=== PATIENT | female | born 1950 | race Caucasian/White ===

== ENCOUNTER 2017-05-11 12:14 | Inpatient (IN) | payer OTHER, BC ==
[2017-05-11] MEDS ORDERED: NS 1,000 ML IV ONE (12:18)
--- NOTE | 2017-05-11 12:25 | EDPHY ---
H & P Time Seen by Provider: 05/11/17 12:18 HPI/ROS: CHIEF COMPLAINT: GI bleed HISTORY OF PRESENT ILLNESS: The patient presents to emergency department from the endoscopy suite with GI bleeding hypotension. The patient reportedly developed symptoms of a GI bleed on Sunday. She had been seen at an urgent care in the [facility] over the weekend. She was mildly anemic at that time. She was discharged to home with plans to follow up with Gastroenterology today. The patient was noted to have evidence of bright red blood at her ileocecal valve. She reportedly had an otherwise unremarkable lower and upper GI according to Dr. Bonilla. The patient tells me she has continued to have intermittent hematochezia melena throughout the week. She has no prior history of GI bleeding. The patient is on a baby aspirin on a daily basis. The patient denies any significant abdominal pain. REVIEW OF SYSTEMS: A comprehensive 10 point review of systems is otherwise negative aside from elements mentioned in the history of present illness. Source: Patient Exam Limitations: No limitations - Medical/Surgical History Other PMH: Past medical history: Hypertension, diabetes - Social History Smoking Status: Never smoked - Physical Exam Exam: General Appearance: Alert, no distress Eyes: Pupils equal and round no pallor or injection ENT, Mouth: Mucous membranes moist Respiratory: There are no retractions, lungs are clear to auscultation Cardiovascular: Regular rate and rhythm Gastrointestinal: Abdomen is soft and nontender, no masses, bowel sounds normal Neurological: A&O, normal motor function, normal sensory exam, normal cranial nerves Skin: Warm and dry, no rashes Musculoskeletal: Neck is supple nontender Extremities: symmetrical, full range of motion Constitutional: Initial Vital Signs Heart Rate 75 05/11/17 12:21 Respiratory Rate 15 05/11/17 12:21 Blood Pressure 102/63 05/11/17 12:21 O2 Sat (%) 93 05/11/17 12:21 O2 Delivery Mode Nasal Cannula O2 (L/minute) 3 Allergies/Adverse Reactions: meperidine [From Demerol] Allergy (Verified 05/11/17 12:17) Home Medications: Medication Instructions Recorded Aspirin [Aspirin 81mg (*)] 05/11/17 Calcium 05/11/17 Esomeprazole Magnesium 40 mg PO 05/11/17 Fish Oil 1,000 mg Capsule 05/11/17 Lisinopril/Hydrochlorothiazide 05/11/17 [Lisinopril-Hctz 10-12.5 mg Tab] Metformin 1000 mg 05/11/17 Relpax 05/11/17 SIMPONI 05/11/17 Verapamil 05/11/17 Vitamin D3 05/11/17 Vitamin and Minerals 05/11/17 Medical Decision Making ED Course/Re-evaluation: The patient presents to the ED with reported history of transient hypotension in the setting of a GI bleed. The patient had been evaluated by Gastroenterology without an obvious source. They did notice blood traversing the terminal ileum. The patient was brought to the emergency department secondary to sporadic hypotension. She arrives and is in no acute distress. She does feel globally weak from some of the sedation she has received. The patient denies significant past medical history of GI bleeding. Patient denies any acute abdominal pain. The patient was placed on a monitor. She had an IV established. She received a L of normal saline. Patient was typed and crossed for 2 units of blood. The patient's initial hematocrit has returned reassuring. There is no evidence of a critical anemia. The patient did have blood pressures checked acute 15 minutes x1 hour without evidence of hypotension in the ED. The patient was seen in consultation by Dr. Gold from Gastroenterology. The patient will be admitted to the hospital for further evaluation of the source of her GI bleed including a tagged red blood cell scan. Consultation was made with Dr. Acevedo from the hospitalist service. The patient will be admitted to a medical-surgical bed under his care. Patient was re-evaluated at 1:40 p.m.. She is in no acute distress. Blood pressure currently 119/79 with heart rate of 80. Differential Diagnosis: Differential diagnosis considered includes upper GI bleed, lower GI bleed, critical anemia, hypovolemia, hemorrhagic shock - Data Points Laboratory Results: Laboratory Results 05/11/17 12:15 05/11/17 12:15 05/11/17 05/11/17 05/11/17 12:15 12:15 12:15 WBC RBC Hgb POC Hgb 10.9 gm/dL L gm/dL (12.6-16.3) Hct POC Hct 32 % L % (38-47) MCV MCH MCHC RDW Plt Count MPV Neut % (Auto) Lymph % (Auto) Mccreary % (Auto) Eos % (Auto) Baso % (Auto) Nucleat RBC Rel Count Absolute Neuts (auto) Absolute Lymphs (auto) Absolute Monos (auto) Absolute Eos (auto) Absolute Basos (auto) Absolute Nucleated RBC Immature Gran % Immature Gran # PT INR APTT POC Sodium 139 mEq/L mEq/L (134-144) Sodium 139 mEq/L mEq/L (134-144) POC Potassium 3.0 mEq/L L mEq/L (3.3-5.0) Potassium 3.3 mEq/L L mEq/L (3.5-5.2) POC Chloride 97 mEq/L mEq/L (97-110) Chloride 102 mEq/L mEq/L (97-110) Carbon Dioxide 25 mEq/l mEq/l (22-31) Anion Gap 12 mEq/L mEq/L (8-16) POC BUN 23 mg/dL mg/dL (7-23) BUN 23 mg/dL mg/dL (7-23) Creatinine 1.2 mg/dL H mg/dL (0.6-1.0) POC Creatinine 1.2 mg/dL H mg/dL (0.6-1.0) Estimated GFR 45 Glucose 135 mg/dL H mg/dL (70-100) POC Glucose 143 mg/dL H mg/dL (70-100) Calcium 8.5 mg/dL mg/dL (8.5-10.4) Total Bilirubin 0.8 mg/dL mg/dL (0.1-1.4) Conjugated Bilirubin 0.2 mg/dL mg/dL (0.0-0.5) Unconjugated Bilirubin 0.6 mg/dL mg/dL (0.0-1.1) AST 117 IU/L H IU/L (14-46) ALT 85 IU/L H IU/L (9-52) Alkaline Phosphatase 49 IU/L IU/L (38-126) Total Protein 6.2 g/dL L g/dL (6.3-8.2) Albumin 3.4 g/dL L g/dL (3.5-5.0) Lipase 161.0 IU/L IU/L (23-300) Patient ABO/Rh O POSITIVE Antibody Screen NEGATIVE Crossmatch IS Only See Detail 05/11/17 05/11/17 12:15 12:15 WBC 4.70 10^3/uL 10^3/uL (3.80-9.50) RBC 3.17 10^6/uL L 10^6/uL (4.18-5.33) Hgb 10.1 g/dL L g/dL (12.6-16.3) POC Hgb Hct 29.2 % L % (38.0-47.0) POC Hct MCV 92.1 fL fL (81.5-99.8) MCH 31.9 pg pg (27.9-34.1) MCHC 34.6 g/dL g/dL (32.4-36.7) RDW 14.0 % % (11.5-15.2) Plt Count 130 10^3/uL L 10^3/uL (150-400) MPV 9.5 fL fL (8.7-11.7) Neut % (Auto) 50.5 % % (39.3-74.2) Lymph % (Auto) 33.6 % % (15.0-45.0) Mccreary % (Auto) 14.7 % H % (4.5-13.0) Eos % (Auto) 0.6 % % (0.6-7.6) Baso % (Auto) 0.2 % L % (0.3-1.7) Nucleat RBC Rel Count 0.0 % % (0.0-0.2) Absolute Neuts (auto) 2.37 10^3/uL 10^3/uL (1.70-6.50) Absolute Lymphs (auto) 1.58 10^3/uL 10^3/uL (1.00-3.00) Absolute Monos (auto) 0.69 10^3/uL 10^3/uL (0.30-0.80) Absolute Eos (auto) 0.03 10^3/uL 10^3/uL (0.03-0.40) Absolute Basos (auto) 0.01 10^3/uL L 10^3/uL (0.02-0.10) Absolute Nucleated RBC 0.00 10^3/uL 10^3/uL (0-0.01) Immature Gran % 0.4 % % (0.0-1.1) Immature Gran # 0.02 10^3/uL 10^3/uL (0.00-0.10) PT 14.1 SEC SEC (12.0-15.0) INR 1.10 (0.83-1.16) APTT 27.5 SEC SEC (23.0-38.0) POC Sodium Sodium POC Potassium Potassium POC Chloride Chloride Carbon Dioxide Anion Gap POC BUN BUN Creatinine POC Creatinine Estimated GFR Glucose POC Glucose Calcium Total Bilirubin Conjugated Bilirubin Unconjugated Bilirubin AST ALT Alkaline Phosphatase Total Protein Albumin Lipase Patient ABO/Rh Antibody Screen Crossmatch IS Only Medications Given: Discontinued Medications Sodium Chloride (Ns) 1,000 mls @ 0 mls/hr IV EDNOW ONE; Wide Open PRN Reason: Protocol Stop: 05/11/17 12:19 Last Admin: 05/11/17 12:23 Dose: 1,000 mls Point of Care Test Results: 05/11/17 12:15 POC Sodium 139 POC Potassium 3.0 L POC Chloride 97 POC BUN 23 POC Creatinine 1.2 H POC Glucose 143 H Departure - Departure Disposition: [facility] Inpatient Acute Clinical Impression: GI bleed, Anemia Condition: Fair Referrals: LAWRENCE FAY [Primary Care Provider] - As per Instructions
[2017-05-11 12:30] LABS: % IMMATURE GRANULYOCYTES 0.4 % (0.0-1.1); ABSOLUTE IMMATURE GRANULOCYTES 0.02 10^3/uL (0.00-0.10); ADD DIFF? NO; ADD MORPH? NO; ADD SCAN? NO; ATYPICAL LYMPHOCYTE FLAG 80 (0-99); FRAGMENT RBC FLAG 0 (0-99); HEMATOCRIT 29.2 % (38.0-47.0); HEMOGLOBIN 10.1 g/dL (12.6-16.3); LEFT SHIFT FLG 0 (0-99); LIPEMIA HEMOLYSIS FLAG 90 (0-99); MEAN CELL HEMOGLOBIN 31.9 pg (27.9-34.1); MEAN CELL HEMOGLOBIN CONCENTR. 34.6 g/dL (32.4-36.7); MEAN CELL VOLUME 92.1 fL (81.5-99.8); MEAN PLATELET VOLUME 9.5 fL (8.7-11.7); PLATELET CLUMPS FLAG 0 (0-99); PLATELET COUNT 130 10^3/uL (150-400); RED BLOOD CELL COUNT 3.17 10^6/uL (4.18-5.33)
[2017-05-11 12:40] LABS: INR 1.1 (0.83-1.16); PROTIME(PATIENT) 14.1 SEC (12.0-15.0)
[2017-05-11 12:41] LABS: APTT 27.5 SEC (23.0-38.0)
[2017-05-11 12:53] LABS: ALANINE AMINOTRANSFERASE 85 IU/L (9-52); ALBUMIN 3.4 g/dL (3.5-5.0); ALKALINE PHOSPHATASE 49 IU/L (38-126); ANION GAP 12 mEq/L (8-16); ASPARTATE AMINOTRANSFERASE 117 IU/L (14-46); BILIRUBIN,TOTAL 0.8 mg/dL (0.1-1.4); BILIRUBIN-CONJUGATED 0.2 mg/dL (0.0-0.5); BILIRUBIN-UNCONJUGATED 0.6 mg/dL (0.0-1.1); CALCIUM 8.5 mg/dL (8.5-10.4); CARBON DIOXIDE 25 mEq/l (22-31); CHLORIDE 102 mEq/L (97-110); CREATININE 1.2 mg/dL (0.6-1.0); GLOMERULAR FILTRATION RATE 45; GLUCOSE 135 mg/dL (70-100); POTASSIUM 3.3 mEq/L (3.5-5.2); SODIUM 139 mEq/L (134-144); TOTAL PROTEIN 6.2 g/dL (6.3-8.2)
--- NOTE | 2017-05-11 14:18 | PDGENHP ---
History and Physical History and Physical: HISTORY AND PHYSICAL CC: GI bleeding HISTORY: This woman with no history of GI bleeding or any other bleeding disorder started noticing melenic stools and occasional bright red blood 6 days ago. She was up in [facility] and went to the ER there. They apparently checked blood counts and a CT scan of the abdomen there and thought things looked well on those tests. She was instructed to make follow-up arrangements engagement specialist. She stayed up in [facility] and return here yesterday ended up seeing her usual engagement specialist Dr. Gonzáles. she underwent preparation and today had upper endoscopy and colonoscopy. Her upper endoscopy apparently was unremarkable. On lower endoscopy there was red blood coming from above the ileocecal valve but the source could not be identified. It is reported to me that she did have some lower blood pressure during the procedure and during sedation but her blood pressures have been good since then. The patient denies any abdominal pain, nausea, change in bowel function, or change in appetite. She has not lost any weight, had fevers, headaches or pains in joints or muscles. She does not take any anticoagulant medications but does take a baby aspirin daily. ROS: A comprehensive 10 system review revealed no other significant findings PAST MEDICAL HISTORY: Hypertension Type 2 diabetes mellitus Vaginal hysterectomy FAMILY MEDICAL HISTORY: No GI bleeding or tumors SOCIAL HISTORY: lives with her , no tobacco use, no significant alcohol issues MEDICATIONS: The patients list has been reconciled by our clinical pharmacist in the EMR. I have reviewed the list and ordered appropriate medicines. allergic to Demerol which caused hives No other medicine allergies PHYSICAL EXAMINATION: Vital Signs:Here she is stable without fever; again she did have some low blood pressure during her colonoscopy apparently Cfa: sinus rhythm Examination: General: alert, oriented, good mentation, relaxed Skin: warm, dry, good color, no rash HEENT: normal Neck: no mass or jvd Resps: relaxed Lungs: clear breath sounds Heart: regular, no murmur Abdomen: soft, nondistended, nontender, +BS, no mass Upper Extremities: normal Lower Extremities: no edema, warm No Bleeding or bruising Neurologic: normal speech/language, 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 A nuclear tagged red cell scan has been ordered to try and isolate the location of her bleeding. So far she has been bleeding for 6 days and remains hemodynamically stable though with some mild normocytic anemia. At this point admission to the hospital to monitor hemodynamics and blood counts is indicated as well as to facilitate further diagnostic evaluation. It is most likely that this bleeding will stop on its own but it is possible that she may need some type of radiologic or surgical procedure to stop the bleeding. PLANS: -IV hydration -NPO for the moment -Follow blood counts and hemodynamics closely -Stop her aspirin at this point -Blood sample has been sent to the blood bank for screening -Will review her tagged red cell scan when that is done and discussed with Dr. Gold of GI - further plans as clinically indicated- for her beeding -Follow sugars and treat as indicated here -DVT prophylaxis will be without medications to her bleeding can be observation status at this point but may well need to be changed to inpatient status I have reviewed the patient's case in detail with Dr. Pawel Aguilar
--- NOTE | 2017-05-11 14:34 | GCON ---
[f rep st] CONSULTATION DATE OF CONSULTATION: 05/11/2017 REFERRING PHYSICIAN: Lobo Dawkins DO REASON FOR CONSULTATION: Melena. Dear Dr. Dawkins: Thank you very kindly for asking me to evaluate the patient in consultation for a chief complaint of melena. She is a 67-year-old female with underlying nonalcoholic steatohepatitis with clinically d iagnosed cirrhosis based on an upper endoscopy in September with portal hypertension and varices who has been having melena since last Sunday. She was vacationing with her up in [place] and n oted the development of black tarry stools on Sunday. She had about 2 bowel movements that were d ark and sticky and malodorous. On Sunday she had another dark tarry bowel movement. She felt somew hat weak and tired but denied any vomiting of blood or abdominal pain. On Sunday there was no bleed ing but on Sunday it recurred. She contacted our office and was set up for an upper endoscopy and colonoscopy which was performed today. The findings on the endoscopy showed features of portal hype rtension with grade 1 esophageal varices and no stigmata of bleeding, but the colonoscopy revealed r ed blood and clot in the cecum that seemed to be emanating from the terminal ilium. There was no co lonic source of bleeding identified. She was slightly hypotensive in recovery and was sent to the e mergency room for further evaluation and management. Of note, she went to an urgent care over the [facility] in [facility] where her hematocrit was found to be 37. This was slightly down from her ba seline. She has well-compensated cirrhosis with a MELD of 7. In the emergency room today, her damian tocrit is 29.2, with an INR of 1.1. Her BUN is 23 with a creatinine of 1.2. Her blood pressure is 117/60. She is mentating well. I am asked to assist with further evaluation and management. PAST MEDICAL HISTORY: 1. Nonalcoholic steatohepatitis with resultant cirrhosis that has been diagnosed clinically. She h ad a remote liver biopsy multiple years ago that she said just showed fatty liver with early fibrosi s but was told she had cirrhosis in September after an endoscopy showed varices. 2. Hypertension. 3. Type 2 diabetes. 4. Rheumatoid arthritis, on Simponi. 5. She has had a history of vocal cord dysfunction and subglottic stenosis that has been treated wi th Botox infection. PAST SURGICAL HISTORY: Abdominal hysterectomy, liver biopsy, Botox injection to the vocal cords las t performed a month ago. MEDICATIONS: Include Simponi, aspirin. ALLERGIES: Demerol. FAMILY HISTORY: Negative for cirrhosis or bleeding disorders. SOCIAL HISTORY: No alcohol, no tobacco. She is . She has 1 son who lives in [place]. She lives in [place]. 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 REVIEW OF SYSTEMS: CONSTITUTIONAL: Has been significant for weakness and malaise which began over the weekend. HEENT: Denies headache, epistaxis, sore throat, rhinorrhea, odynophagia or difficulty swallowing. PULMONARY: No shortness of breath but she does report a cough which is typical after her Botox injection to the vocal cords. She also reports some hoarseness which is also common after her Botox injection. CARDIOVASCULAR: No palpitations, no syncope, no chest pain. GI: Denies hea rtburn, dysphagia, nausea, vomiting, or hematemesis. She reported melena which is been as described in history of present illness which began Sunday. She also had some red blood that was more fres h in color and of moderate volume that occurred with the bowel cleanse for colonoscopy today. She d enies abdominal pain. RHEUMATOLOGIC: Diffuse joint pain in the ankles, knees, hands, wrists, shoul ders and low back related to her arthritis which has been stable. DERMATOLOGIC: Denies rash, bruis ing, jaundice or pruritus. HEMATOLOGIC: No bruising or epistaxis. PSYCHIATRIC: No depression, an xiety, or insomnia. GENITOURINARY: Denies hematuria. GYNECOLOGIC: Denies vaginal bleeding. PHYSICAL EXAM: VITAL SIGNS: Blood pressure 102/63, with a pulse of 75, respirations are 15, oxygen ation 93% on 3 L nasal cannula. GENERAL: Pale but comfortable-appearing female in no acute distres s. Alert and able to provide her own history. Her voice is hoarse and she does have intermittent d ry cough. HEENT: Normocephalic, atraumatic. Nares are nonbloody. Oropharynx is clear without blo od. NECK: Supple. No JVD or carotid bruit. No lymphadenopathy. No thyromegaly. PULMONARY: Kamlesh ar to auscultation bilaterally with good respiratory exchange. There is some mild rhonchi, and with deep breathing, it precipitates coughing. CARDIOVASCULAR: Regular rate and rhythm. Occasional ec topy. No murmur. GI: Abdomen is nondistended with normal bowel sounds. Soft. No organomegaly. No splenomegaly particularly. No ascites. No hernia. No tenderness, rebound or guarding. SKIN: Pale and slightly cool to touch. Capillary refill is normal. Pulses in the dorsalis pedis, femoral and radial are 2+ and symmetric. DERMATOLOGIC: No jaundice, rash or lesion. NEUROLOGIC: Alert t o person, place, and time. Cranial nerves are normal. Motor nonfocal and symmetric. DATABASE: Includes white blood count is 4.7, hematocrit is 29.2, platelets are 130. INR is 1.1 wit h a PT of 14.1, PTT is 27.5. Sodium 139, potassium 3.3, chloride 97, bicarbonate 25, BUN 23, creati nine 1.2. Glucose 135, AST is 117, ALT is 85, total bilirubin 0.8, alkaline phosphatase 49, total pr otein 6.2, albumin 3.4, lipase 161. Upper endoscopy performed today. I do not have that formal report, but in speaking with Dr. George Borrego, this revealed small 5 mm grade 1 esophageal varices without stigmata of bleeding and martin l hypertensive gastropathy that was mild to moderate. There was no blood anywhere in the upper GI s ystem and no source for bleeding identified. Colonoscopy complete to the cecum. There was blood scattered throughout the colon with more predomi nant clotting and red blood coming out of the terminal ilium that was seen during colonoscopy but no identifiable mucosal lesion to account for the bleeding was found. The suspicion on exam was for a possible small bowel bleeding source. IMPRESSION: 1. Melena. 2. Anemia secondary to acute blood loss. 3. Hypotension. 4. Cirrhosis related to fatty liver disease. MELD score is 8. RECOMMENDATIONS: 1. N,p.o. 2. Monitor hematocrit q.4 hours. 3. Tagged red blood cell study. 4. Based on the findings of the tagged red cell scan, further interrogative maneuvers can be perfor med. If the red blood cell scan is positive for bleeding in the small bowel, then angiography will be requested. 5. If the tagged cell study suggests a bleeding source that is within the reach of upper endoscopy or colonoscopy, then these will be repeated to help identify the bleeding location. 6. Her coagulation parameters are normal and I do not believe vitamin K or fresh frozen plasma woul d be of any value in controlling bleeding. 7. Withhold all aspirin. 8. Withhold Simponi for now. 9. Hospital admission for Intermediate Care Unit bed (minimally step-down) or telemetry for ongoing care. 10. Further recommendations to follow. /[id number]/MODL
[2017-05-11] MEDS ORDERED: ZOLPIDEM TARTRATE 5 MG TAB PO PRN (16:24)
[2017-05-11] MEDS ORDERED: ONDANSETRON 4 MG/2 ML VIAL IVP PRN (16:24)
[2017-05-11] MEDS ORDERED: ONDANSETRON DISINTEGRATING 4 MG TAB PO PRN (16:24)
[2017-05-11] MEDS ORDERED: ELETRIPTAN HBR 40 MG PO PRN (16:28)
[2017-05-11] MEDS: NS 1,000 ML IV SCH (17:48)
[2017-05-11] MEDS: metFORMIN HCL 500 MG TAB PO SCH (17:58)
[2017-05-11 18:58] LABS: HEMATOCRIT 27.4 % (38.0-47.0); HEMOGLOBIN 9.5 g/dL (12.6-16.3)
[2017-05-11] MEDS: PANTOPRAZOLE SODIUM 40 MG in NS 100 ML IV SCH (21:22)
[2017-05-12 01:15] LABS: HEMATOCRIT 28.2 % (38.0-47.0)
[2017-05-12 05:20] LABS: HEMATOCRIT 28.9 % (38.0-47.0)
[2017-05-12 05:42] LABS: ANION GAP 14 mEq/L (8-16); CALCIUM 8.4 mg/dL (8.5-10.4); CARBON DIOXIDE 23 mEq/l (22-31); CHLORIDE 106 mEq/L (97-110); CREATININE 0.8 mg/dL (0.6-1.0); GLOMERULAR FILTRATION RATE > 60; GLUCOSE 109 mg/dL (70-100); POTASSIUM 3.2 mEq/L (3.5-5.2); SODIUM 143 mEq/L (134-144)
[2017-05-12] MEDS: metFORMIN HCL 500 MG TAB PO SCH ×2 (07:57→17:51)
[2017-05-12] MEDS: ACETAMINOPHEN 325 MG TAB PO PRN (07:59)
[2017-05-12] MEDS: PANTOPRAZOLE SODIUM 40 MG in NS 100 ML IV SCH ×2 (08:01→21:28)
[2017-05-12] MEDS: NS 1,000 ML IV SCH ×2 (08:03→18:13)
[2017-05-12] MEDS ORDERED: ACETAMN/DIPHENHYDRAMINE 500/25MG TAB PO PRN (11:34)
[2017-05-12] MEDS ORDERED: VERAPAMIL HCL 240 MG PO SCH (11:45)
[2017-05-12] MEDS ORDERED: VERAPAMIL ER 240 MG TAB PO SCH (11:45)
[2017-05-12] MEDS: VERAPAMIL ER 240 MG TAB PO SCH ×2 (12:03→21:37)
--- NOTE | 2017-05-12 13:17 | SOAPPROG ---
SOAP Progress Note Assessment/Plan: Assessment: Plan: 05/12/17 13:12 A/P 1. GI bleed- s/p EGD with no blood seen. On colonoscopic evaluation had blood in TI. Small bowel bleed versus other? Tagged rbc scan unrevealing. Clinically does not appear to be actively bleeding and hemoglobin stable. If no signs of GI bleed, would recommend capsule endoscopy as outpatient. If any signs of bleed , consider enteroscopy/ possible enterography. Will start diet. Monitor H/H and transfuse as needed. 2. Cirrhosis- grade I nonbleeding esophageal varices. Subjective: cc: Follow up GI bleed No complaints of abdominal pain. Minimal blood noted on BM. Objective: Vital Signs Temp Pulse Resp BP Pulse Ox 36.7 C 69 18 147/83 H 91 L 05/12/17 11:22 05/12/17 11:22 05/12/17 11:22 05/12/17 12:03 05/12/17 11:22 Laboratory Results 05/12/17 05:00 05/12/17 05:00 05/11/17 05/12/17 05/13/17 05:59 05:59 05:59 Intake Total 989 Output Total 250 Balance 739 PT 14.1 SEC (12.0-15.0) 05/11/17 12:15 INR 1.10 (0.83-1.16) 05/11/17 12:15 Physical Exam - Physical Exam General Appearance: alert, no apparent distress EENT: No scleral icterus (R), No scleral icterus (L) Respiratory: lungs clear, normal breath sounds, No crackles, No rales, No rhonchi Cardiac/Chest: regular rate, rhythm, No bradycardia, No tachycardia Abdomen: normal bowel sounds, non-tender, soft, No distended, No guarding, No rebound, No ascites Skin: normal color, warm/dry Neuro/Psych: normal mood/affect, oriented x 3, No abnormal disk and tape machine tender II-XII ICD10 Worksheet Patient Problems: Problems Problem Status Onset Anemia Acute GI bleed Acute
[2017-05-12 13:27] LABS: HEMATOCRIT 27.7 % (38.0-47.0); HEMOGLOBIN 9.4 g/dL (12.6-16.3)
--- NOTE | 2017-05-12 15:53 | HOSPPROG ---
Hospitalist Progress Note Assessment/Plan: * upper GI bleed * probably small-bowel * seems to have stabilized * will discontinue aspirin * monitor 1 more day * capsule endoscopy outpatient * early cirrhosis * hypertension * will continue most meds but hold diuretic * type 2 diabetes Subjective: no new melena Objective: Vital Signs Temp Pulse Resp BP Pulse Ox 36.7 C 69 18 147/83 H 91 L 05/12/17 11:22 05/12/17 11:22 05/12/17 11:22 05/12/17 12:03 05/12/17 11:22 Laboratory Results 05/12/17 12:15 05/12/17 05:00 05/11/17 05/12/17 05/13/17 05:59 05:59 05:59 Intake Total 989 Output Total 250 Balance 739 PT 14.1 SEC (12.0-15.0) 05/11/17 12:15 INR 1.10 (0.83-1.16) 05/11/17 12:15 - Physical Exam Constitutional: no apparent distress, appears nourished, not in pain Eyes: anicteric sclera, EOMI Ears, Nose, Mouth, Throat: moist mucous membranes, hearing normal Cardiovascular: regular rate and rhythym, no murmur, rub, or gallop Respiratory: no respiratory distress, no rales or rhonchi, clear to auscultation Gastrointestinal: normoactive bowel sounds, soft, non-tender abdomen, no palpable masses Skin: warm Neurologic: AAOx3 Psychiatric: interacting appropriately, not anxious, not encephalopathic, thought process linear ICD10 Worksheet Patient Problems: Problems Problem Status Onset Anemia Acute GI bleed Acute
[2017-05-12] MEDS: LISINOPRIL 40 MG TAB PO SCH (16:10)
[2017-05-12] MEDS: guaiFENesin 200 MG/10 ML UDL PO PRN ×2 (18:13→21:29)
[2017-05-12 20:39] LABS: HEMATOCRIT 26.6 % (38.0-47.0); HEMOGLOBIN 9.2 g/dL (12.6-16.3)
[2017-05-12] MEDS ORDERED: TEMAZEPAM 15 MG CAP PO PRN (20:48)
[2017-05-13 00:59] LABS: HEMATOCRIT 26.9 % (38.0-47.0); HEMOGLOBIN 9.2 g/dL (12.6-16.3)
[2017-05-13] MEDS: NS 1,000 ML IV SCH ×2 (04:18→19:59)
[2017-05-13 05:29] LABS: ADD MORPH? NO; ADD SCAN? YES; FRAGMENT RBC FLAG 0 (0-99); HEMATOCRIT 27.9 % (38.0-47.0); HEMOGLOBIN 9.4 g/dL (12.6-16.3); LEFT SHIFT FLG 0 (0-99); LIPEMIA HEMOLYSIS FLAG 80 (0-99); MEAN CELL HEMOGLOBIN 31.8 pg (27.9-34.1); MEAN CELL HEMOGLOBIN CONCENTR. 33.7 g/dL (32.4-36.7); MEAN CELL VOLUME 94.3 fL (81.5-99.8); MEAN PLATELET VOLUME 9.2 fL (8.7-11.7); PLATELET CLUMPS FLAG 30 (0-99); PLATELET COUNT 125 10^3/uL (150-400); RED BLOOD CELL COUNT 2.96 10^6/uL (4.18-5.33); RED CELL DISTRIBUTION WIDTH 14.3 % (11.5-15.2)
[2017-05-13 05:30] LABS: ATYPICAL LYMPHOCYTE FLAG 120 (0-99)
[2017-05-13 05:33] LABS: POTASSIUM 3.4 mEq/L (3.5-5.2)
[2017-05-13 05:34] LABS: ANION GAP 11 mEq/L (8-16); CALCIUM 8.2 mg/dL (8.5-10.4); CARBON DIOXIDE 24 mEq/l (22-31); CHLORIDE 110 mEq/L (97-110); CREATININE 0.8 mg/dL (0.6-1.0); GLOMERULAR FILTRATION RATE > 60; GLUCOSE 96 mg/dL (70-100); SODIUM 145 mEq/L (134-144)
[2017-05-13 05:49] LABS: ADD DIFF? YES; SCAN POSITIVE
[2017-05-13 05:52] LABS: MACROCYTES 2+; PLATELET ESTIMATE DECREASED (ADEQ); POLYCHROMASIA 1+
[2017-05-13] MEDS: LISINOPRIL 40 MG TAB PO SCH (10:08)
[2017-05-13] MEDS: VERAPAMIL ER 240 MG TAB PO SCH ×2 (10:09→20:07)
[2017-05-13] MEDS: PANTOPRAZOLE SODIUM 40 MG in NS 100 ML IV SCH ×2 (10:09→20:20)
[2017-05-13] MEDS: metFORMIN HCL 500 MG TAB PO SCH ×2 (10:11→18:56)
--- NOTE | 2017-05-13 13:20 | SOAPPROG ---
SOAP Progress Note Assessment/Plan: Assessment: Plan: 05/12/17 13:12 A/P 1. GI bleed- s/p EGD with no blood seen. On colonoscopic evaluation had blood in TI. Small bowel bleed versus other? Tagged rbc scan unrevealing. Clinically does not appear to be actively bleeding and hemoglobin stable. If no signs of GI bleed, would recommend capsule endoscopy as outpatient. If any signs of bleed , consider enteroscopy/ possible enterography. Will start diet. Monitor H/H and transfuse as needed. 2. Cirrhosis- grade I nonbleeding esophageal varices. 05/13/17 13:17 A/P 1. GI bleed- s/p EGD, colonoscopy, and tagged rbc scan which is unrevealing. SB bleed? Blood BM reported by her last night. However, hemoglobin stable and no recent BMs. According to sign out from nurse last night, may have not been that bloody? Will order CT enterography today. Monitor H/H. If unrevealing, will consider enteroscopy tomorrow? R/b/a discussed with her. Subjective: cc: F/u on blood in stools No pain. Had bloody BM last night. Objective: Vital Signs Temp Pulse Resp BP Pulse Ox 36.6 C 59 L 18 111/68 92 05/13/17 07:38 05/13/17 10:07 05/13/17 07:38 05/13/17 10:09 05/13/17 07:38 Laboratory Results 05/13/17 04:50 05/13/17 04:50 05/12/17 05/13/17 05/14/17 05:59 05:59 05:59 Intake Total 989 3116 Output Total 250 451 450 Balance 739 2665 -450 PT 14.1 SEC (12.0-15.0) 05/11/17 12:15 INR 1.10 (0.83-1.16) 05/11/17 12:15 Physical Exam - Physical Exam General Appearance: alert, no apparent distress EENT: No scleral icterus (R), No scleral icterus (L) Respiratory: lungs clear, normal breath sounds, No crackles, No rales, No rhonchi Cardiac/Chest: regular rate, rhythm, No diastolic murmur, No systolic murmur Abdomen: non-tender, soft, No distended, No guarding, No rebound Skin: normal color Neuro/Psych: normal mood/affect, oriented x 3, No abnormal procedures analyst II-XII ICD10 Worksheet Patient Problems: Problems Problem Status Onset Anemia Acute GI bleed Acute
[2017-05-13] MEDS ORDERED: IOPAMIDOL (ISOVUE-300) 100 ML BTL ONE (14:47)
[2017-05-13] MEDS: guaiFENesin 200 MG/10 ML UDL PO PRN (16:19)
[2017-05-13 16:41] LABS: HEMATOCRIT 25.4 % (38.0-47.0); HEMOGLOBIN 8.6 g/dL (12.6-16.3)
[2017-05-13] MEDS ORDERED: ALBUTEROL 3 ML DEYVIAL IH PRN (16:47)
[2017-05-13] MEDS: guaiFENesin 600 MG TAB.ER PO SCH ×2 (18:48→20:11)
--- NOTE | 2017-05-13 19:12 | HOSPPROG ---
Hospitalist Progress Note Assessment/Plan: * upper GI bleed * probably small-bowel * seems to have stabilized but did have bloody bm * will discontinue aspirin * cont to watch hg * possible repeat colonoscopy tomorrow if bleeding * early cirrhosis * hypertension * will continue most meds but hold diuretic * type 2 diabetes Subjective: some bloody stool overnight but none today Objective: Vital Signs Temp Pulse Resp BP Pulse Ox 36.8 C 66 17 106/60 90 L 05/13/17 16:00 05/13/17 16:00 05/13/17 16:00 05/13/17 16:00 05/13/17 16:00 Laboratory Results 05/13/17 16:15 05/13/17 04:50 05/12/17 05/13/17 05/14/17 05:59 05:59 05:59 Intake Total 989 3116 Output Total 250 451 450 Balance 739 2665 -450 PT 14.1 SEC (12.0-15.0) 05/11/17 12:15 INR 1.10 (0.83-1.16) 05/11/17 12:[address] regalado - Physical Exam Constitutional: no apparent distress, appears nourished, not in pain Eyes: anicteric sclera, EOMI Ears, Nose, Mouth, Throat: moist mucous membranes, hearing normal, ears appear normal Cardiovascular: regular rate and rhythym, no murmur, rub, or gallop Respiratory: no respiratory distress, no rales or rhonchi, clear to auscultation Gastrointestinal: normoactive bowel sounds, soft, non-tender abdomen, no palpable masses Skin: warm Neurologic: AAOx3 Psychiatric: interacting appropriately, not anxious, not encephalopathic, thought process linear ICD10 Worksheet Patient Problems: Problems Problem Status Onset Anemia Acute GI bleed Acute
[2017-05-13] MEDS: ALBUTEROL 3 ML DEYVIAL IH SCH ×2 (19:17→20:44)
[2017-05-14] MEDS: ACETAMINOPHEN 325 MG TAB PO PRN (00:04)
[2017-05-14 05:08] LABS: ANION GAP 9 mEq/L (8-16); CALCIUM 7.8 mg/dL (8.5-10.4); CARBON DIOXIDE 21 mEq/l (22-31); CHLORIDE 114 mEq/L (97-110); CREATININE 0.7 mg/dL (0.6-1.0); GLOMERULAR FILTRATION RATE > 60; GLUCOSE 80 mg/dL (70-100); POTASSIUM 3.5 mEq/L (3.5-5.2); SODIUM 144 mEq/L (134-144)
[2017-05-14 06:30] LABS: % IMMATURE GRANULYOCYTES 0.6 % (0.0-1.1); ABSOLUTE IMMATURE GRANULOCYTES 0.02 10^3/uL (0.00-0.10); ADD DIFF? NO; ADD MORPH? NO; ADD SCAN? YES; FRAGMENT RBC FLAG 0 (0-99); HEMATOCRIT 23.9 % (38.0-47.0); HEMOGLOBIN 8.1 g/dL (12.6-16.3); LEFT SHIFT FLG 0 (0-99); LIPEMIA HEMOLYSIS FLAG 90 (0-99); MEAN CELL HEMOGLOBIN 31.6 pg (27.9-34.1); MEAN CELL HEMOGLOBIN CONCENTR. 33.9 g/dL (32.4-36.7); MEAN CELL VOLUME 93.4 fL (81.5-99.8); MEAN PLATELET VOLUME 8.8 fL (8.7-11.7); PLATELET CLUMPS FLAG 0 (0-99); PLATELET COUNT 101 10^3/uL (150-400); RED BLOOD CELL COUNT 2.56 10^6/uL (4.18-5.33); RED CELL DISTRIBUTION WIDTH 14.4 % (11.5-15.2)
[2017-05-14 06:33] LABS: ATYPICAL LYMPHOCYTE FLAG 150 (0-99)
[2017-05-14] MEDS: NS 1,000 ML IV SCH (06:34)
[2017-05-14 07:12] LABS: SCAN NEGATIVE
--- NOTE | 2017-05-14 07:34 | SOAPPROG ---
JOSE Progress Note Assessment/Plan: Assessment: Plan: 05/12/17 13:12 A/P 1. GI bleed- s/p EGD with no blood seen. On colonoscopic evaluation had blood in TI. Small bowel bleed versus other? Tagged rbc scan unrevealing. Clinically does not appear to be actively bleeding and hemoglobin stable. If no signs of GI bleed, would recommend capsule endoscopy as outpatient. If any signs of bleed , consider enteroscopy/ possible enterography. Will start diet. Monitor H/H and transfuse as needed. 2. Cirrhosis- grade I nonbleeding esophageal varices. 05/13/17 13:17 A/P 1. GI bleed- s/p EGD, colonoscopy, and tagged rbc scan which is unrevealing. SB bleed? Blood BM reported by her last night. However, hemoglobin stable and no recent BMs. According to sign out from nurse last night, may have not been that bloody? Will order CT enterography today. Monitor H/H. If unrevealing, will consider enteroscopy tomorrow? R/b/a discussed with her. 05/14/17 07:33 GI note CTE unremarkable. Discussed with patient. Will proceed with enteroscopy later today. Keep NPO Objective: Vital Signs Temp Pulse Resp BP Pulse Ox 36.6 C 63 16 113/66 90 L 05/14/17 04:34 05/14/17 04:34 05/14/17 04:34 05/14/17 04:34 05/14/17 04:34 Laboratory Results 05/14/17 06:15 05/14/17 04:23 05/13/17 05/14/17 05/15/17 05:59 05:59 05:59 Intake Total 3116 550 2026 Output Total 451 2200 Balance 2665 -1650 202 PT 14.1 SEC (12.0-15.0) 05/11/17 12:15 INR 1.10 (0.83-1.16) 05/11/17 12:15 ICD10 Worksheet Patient Problems: Problems Problem Status Onset GI bleed Acute Anemia Acute
[2017-05-14] MEDS: ALBUTEROL 3 ML DEYVIAL IH SCH ×2 (08:44→22:10)
[2017-05-14] MEDS: PANTOPRAZOLE SODIUM 40 MG in NS 100 ML IV SCH ×2 (09:16→20:19)
[2017-05-14] MEDS: LISINOPRIL 40 MG TAB PO SCH (09:16)
[2017-05-14] MEDS: VERAPAMIL ER 240 MG TAB PO SCH ×2 (09:16→20:19)
[2017-05-14] MEDS: guaiFENesin 600 MG TAB.ER PO SCH ×2 (09:16→20:19)
--- NOTE | 2017-05-14 16:18 | HOSPPROG ---
Hospitalist Progress Note Assessment/Plan: * upper GI bleed * probably small-bowel * Hemoglobin is drifting down * will discontinue aspirin * Enteroscopy today * early cirrhosis * hypertension * will continue most meds but hold diuretic * bronchitis * Probably viral * Getting better * Hold off on antibiotics * rheumatoid arthritis * Holding biological medication for a few days * type 2 diabetes Subjective: 1 bowel movement with blood last night. Hemoglobin is drifting down a little bit. Cough seems to be better Objective: Vital Signs Temp Pulse Resp BP Pulse Ox 37 C 67 18 134/78 H 91 L 05/14/17 15:11 05/14/17 15:11 05/14/17 15:11 05/14/17 15:11 05/14/17 15:11 Laboratory Results 05/14/17 06:15 05/14/17 04:23 05/13/17 05/14/17 05/15/17 05:59 05:59 05:59 Intake Total 3116 550 2026 Output Total 451 2200 550 Balance 2665 -1650 1476 PT 14.1 SEC (12.0-15.0) 05/11/17 12:15 INR 1.10 (0.83-1.16) 05/11/17 12:15 - Physical Exam Constitutional: no apparent distress, appears nourished, not in pain Eyes: anicteric sclera, EOMI Ears, Nose, Mouth, Throat: moist mucous membranes, hearing normal Cardiovascular: regular rate and rhythym, no murmur, rub, or gallop Respiratory: no respiratory distress, other (Slight coarse wheezes. Less rhonchi today) Gastrointestinal: normoactive bowel sounds, soft, non-tender abdomen, no palpable masses Skin: warm Neurologic: AAOx3 Psychiatric: interacting appropriately, not anxious, not encephalopathic, thought process linear ICD10 Worksheet Patient Problems: Problems Problem Status Onset Anemia Acute GI bleed Acute
--- NOTE | 2017-05-14 16:43 | PDANEPAE ---
ANE Past Medical History - Pulmonary History Hx Oxygen in Use at Home: No Hx Sleep Apnea: No Sleep Apnea Screening Result - Last Documented: Positive - Endocrine History Hx Diabetes: Yes - Chronic Pain History Chronic Pain: No ANE Patient History - Allergies Allergies/Adverse Reactions: meperidine [From Demerol] Allergy (Verified 05/11/17 15:24) Hives - Home Medications Home Medications: Acetamn/Diphenhydramine 500/25 [Tylenol PM (*)] 1 each PO HS PRN 05/11/17 [Last Taken 05/10/17] Aspirin [Aspirin 81mg (*)] 81 mg PO HS 05/11/17 [Last Taken 05/09/17] Calcium Carbonate [Oyster Shell Calcium 500 mg (*)] 1,000 mg PO DAILY 05/11/17 [ Last Taken 05/10/17] Cholecalciferol Vit D3 [Vitamin D3 (*)] 2,000 units PO HS 05/11/17 [Last Taken 05/09/17] Eletriptan HBr [Relpax] 40 mg PO ONCE PRN 05/11/17 [Last Taken Unknown] Esomeprazole Magnesium 40 mg PO DAILY 05/11/17 [Last Taken 05/10/17] Golimumab [SIMPONI] 50 mg SQ Q30D 05/11/17 [Last Taken 04/13/17] Herbals/Supplements -Info Only 1 ea PO DAILY 05/11/17 [Last Taken 05/10/17] Lisinopril/Hydrochlorothiazide [Zestoretic 20-25 mg Tablet] 2 each PO DAILY [Last Taken 05/10/17] Multivitamins [Multivitamin (*)] 1 each PO DAILY 05/11/17 [Last Taken 05/10/17] [place]-3 Fatty Acids [Fish Oil 1000 mg (*)] 1,000 mg PO HS 05/11/17 [Last Taken 05/09/17] Verapamil HCl [Verapamil Sr] 240 mg PO BID 05/11/17 [Last Taken 05/10/17] metFORMIN HCL [Glucophage 500 mg (*)] 1,000 mg PO DAILY 05/11/17 [Last Taken ] metFORMIN HCL [Glucophage 500 mg (*)] 500 mg PO DAILY@18 05/11/17 [Last Taken ] - NPO status NPO Since - Liquids (Date): 05/14/17 NPO Since - Liquids (Time): 00:00 NPO Since - Solids (Date): 05/14/17 NPO Since - Solids (Time): 00:00 - Smoking Hx Smoking Status: Never smoked ANE Labs/Vital Signs - Labs Result Diagrams: 05/14/17 06:15 05/14/17 04:23 - Vital Signs Blood Pressure: 134/78 Heart Rate: 67 Respiratory Rate: 18 O2 Sat (%): 91 Height: 167.64 cm Weight: 87.997 kg ANE Physical Exam - Airway Mallampati Score: Class 1 Mouth exam: normal dental/mouth exam - Pulmonary Pulmonary: no respiratory distress, no rales or rhonchi, clear to auscultation - Cardiovascular Cardiovascular: regular rate and rhythym, no murmur, rub, or gallop - ASA Status ASA Status: III ANE Anesthesia Plan Anesthesia Plan: MAC
[2017-05-14] MEDS ORDERED: PROPOFOL 200 MG/20 ML VIAL ONE (16:48)
[2017-05-14] MEDS ORDERED: NALOXONE HCL 0.4 MG/ML INJ IVP PRN (18:00)
[2017-05-14] MEDS ORDERED: ONDANSETRON 4 MG/2 ML VIAL IVP PRN (18:00)
[2017-05-14] MEDS ORDERED: fentaNYL 100 MCG/2 ML INJ IVP PRN (18:00)
[2017-05-14] MEDS ORDERED: LR 500 ML IV PRN (18:00)
--- NOTE | 2017-05-14 18:00 | POSTANESTH ---
Post Anesthetic Evaluation Cardiovascular Status: Normal, Stable, Similar to Pre-Op Cond Respiratory Status: Normal, Stable, Similar to Pre-op Cond. Level of Consciousness/Mental Status: Can Participate in Eval, Mildly Sleepy, Arousable Pain Control: Adequate, Prn Tx Ordered Nausea/Vomiting Control: Adequate, Prn Tx Ordered Complications Possibly Related to Anesthesia: None Noted
--- NOTE | 2017-05-14 18:05 | SOAPPROG ---
SOAP Progress Note Assessment/Plan: Assessment: Plan: 05/12/17 13:12 A/P 1. GI bleed- s/p EGD with no blood seen. On colonoscopic evaluation had blood in TI. Small bowel bleed versus other? Tagged rbc scan unrevealing. Clinically does not appear to be actively bleeding and hemoglobin stable. If no signs of GI bleed, would recommend capsule endoscopy as outpatient. If any signs of bleed , consider enteroscopy/ possible enterography. Will start diet. Monitor H/H and transfuse as needed. 2. Cirrhosis- grade I nonbleeding esophageal varices. 05/13/17 13:17 A/P 1. GI bleed- s/p EGD, colonoscopy, and tagged rbc scan which is unrevealing. SB bleed? Blood BM reported by her last night. However, hemoglobin stable and no recent BMs. According to sign out from nurse last night, may have not been that bloody? Will order CT enterography today. Monitor H/H. If unrevealing, will consider enteroscopy tomorrow? R/b/a discussed with her. 05/14/17 07:33 GI note CTE unremarkable. Discussed with patient. Will proceed with enteroscopy later today. Keep NPO 05/14/17 18:02 GI note S/p enteroscopy. No cause found. See dictated note for details. EBL:none Meds: propofol Rec: 1. Monitor H/H 2. Restart diet 3. Capsule endoscopy as outpatient 05/14/17 18:05 Objective: Vital Signs Temp Pulse Resp BP Pulse Ox 37 C 67 18 134/78 H 91 L 05/14/17 15:11 05/14/17 16:43 05/14/17 16:43 05/14/17 16:43 05/14/17 16:43 Laboratory Results 05/14/17 06:15 05/14/17 04:23 05/13/17 05/14/17 05/15/17 05:59 05:59 05:59 Intake Total 3116 550 2026 Output Total 451 2200 550 Balance 2665 -1650 1476 PT 14.1 SEC (12.0-15.0) 05/11/17 12:15 INR 1.10 (0.83-1.16) 05/11/17 12:15 ICD10 Worksheet Patient Problems: Problems Problem Status Onset GI bleed Acute Anemia Acute
[2017-05-14] MEDS ORDERED: INDOMETHACIN 50 MG SUPP PR PRN (18:12)
[2017-05-14] MEDS ORDERED: NS 500 ML IV SCH (18:15)
[2017-05-14] MEDS: metFORMIN HCL 500 MG TAB PO SCH ×2 (19:17)
[2017-05-14 19:46] LABS: HEMATOCRIT 23.2 % (38.0-47.0); HEMOGLOBIN 7.8 g/dL (12.6-16.3)
--- NOTE | 2017-05-15 04:55 | GPN ---
[f rep st] PROCEDURE NOTE DATE OF PROCEDURE: 05/14/2017 PROCEDURE: Enteroscopy. INDICATION: The patient is a 67-year-old female who presents with an occult, overt GI bleed. CONSENT: Risks, benefits, and alternatives of the procedure were discussed in great detail with the patient. Risk of infection, bleeding, perforation, and sedation were discussed. All questions ans wered. Informed consent obtained. MEDICATIONS: Propofol. Please see anesthesia record for details. ESTIMATED BLOOD LOSS: Insignificant. ENTEROSCOPY EXAMINATION: The Olympus pediatric colonoscope was introduced in the mouth and advanced to the esophagus. The proximal and mid esophagus were normal in appearance. The patient was noted to have grade 1 esophageal varices. The stomach was entered and closely examined, including retroflex views of the angularis, cardia and fundus. The duodenal bulb and second portion of duodenum were normal in appearance. The scope was advanced approximately 80 cm from the pylorus into the proximal jejunum. No AVMs, ulc ers or other possible bleeding sources were noted. No blood was seen during this examination. IMPRESSION: No source of bleeding found. RECOMMENDATIONS: 1. Monitor H and H. 2. Restart diet. 3. If no signs of bleeding, can discharge tomorrow. Will need outpatient capsule endoscopy. /[id number]/MODL
[2017-05-15] MEDS: NS 1,000 ML IV SCH (07:55)
[2017-05-15] MEDS: PANTOPRAZOLE SODIUM 40 MG in NS 100 ML IV SCH (07:55)
[2017-05-15] MEDS: guaiFENesin 600 MG TAB.ER PO SCH (08:05)
[2017-05-15] MEDS: LISINOPRIL 40 MG TAB PO SCH (08:05)
[2017-05-15] MEDS: VERAPAMIL ER 240 MG TAB PO SCH (08:06)
[2017-05-15 08:14] VITALS: BP 106/75; TEMP 98.2
[2017-05-15 08:15] LABS: HEMATOCRIT 23.4 % (38.0-47.0)
[2017-05-15] MEDS: ALBUTEROL 3 ML DEYVIAL IH SCH (09:21)
[2017-05-15 09:29] VITALS: PULSE 78; RESP 16; O2SAT 97
[2017-05-15] MEDS: metFORMIN HCL 500 MG TAB PO SCH ×2 (12:15→12:36)
--- NOTE | 2017-05-16 05:49 | GDS ---
[f rep st] DISCHARGE SUMMARY DISCHARGE DIAGNOSES: 1. Gastrointestinal bleed most likely from small bowel. 2. Anemia secondary to acute blood loss. 3. History of early cirrhosis. 4. Rheumatoid arthritis. 5. Type 2 diabetes. 6. Hypertension. HISTORY: This is a 67-year-old female, who presented with bright red blood per rectum. HOSPITAL COURSE: Patient had a colonoscopy outpatient which did show blood in the colon and looked like it was coming out of the ileocecal valve. She was admitted and monitored for several days. GI saw the patient. She had a CT enterography which was negative and also an enteroscope. All these were negative. Her hemoglobin stabilized. We have discontinued her aspirin. She will follow up [facility] for a small bowel capsule endoscopy. She is instructed not to take any more asp irin. TIME SPENT: Greater than 30 minutes was spent on this discharge. /[id number]/MODL
== END 2017-05-15 15:06 | disposition home or self-care (01) | DRG 378 ==
LOC: F1N 15:12 → OBSVTOIN 16:24
PROVIDERS: ADMIT Internal Medicine Pulmonary Disease; ATTEND Internal Medicine
PROC: 0DJ08ZZ Inspection of Upper Intestinal Tract, Via Natural or Artificial Opening Endoscopic (ICD-10-PCS; principal; 2017-05-14 15:15)
DX: K92.2 Gastrointestinal hemorrhage, unspecified (principal); D62 Acute posthemorrhagic anemia; I85.10 Secondary esophageal varices without bleeding; Z79.82 Long term (current) use of aspirin; K74.60 Unspecified cirrhosis of liver; I10 Essential (primary) hypertension; E11.9 Type 2 diabetes mellitus without complications; M06.9 Rheumatoid arthritis, unspecified; N28.9 Disorder of kidney and ureter, unspecified
CPT/HCPCS: 82947-QW; A9560; J1642; J2704; Q9967

== ENCOUNTER 2017-07-20 06:25 | Day surgery (SDC) | payer OTHER, BC ==
--- NOTE | 2017-07-20 06:31 | PDANEPAE ---
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 Hgb A1C 5.8 - Liver History Hx Hepatic Disorders: Yes Hepatic History Comment: "fatty liver" - Neurological & Psychiatric Hx Hx Neurological and Psychiatric Disorders: No - Cancer History Hx Cancer: No - Congenital Disorder History Hx Congenital Disorders: No - GI History Hx Gastrointestinal Disorders: Yes Gastrointestinal History Comment: rectal bleeding in April. 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 - Other Health History Other Health History: rheumatoid arthritis - Chronic Pain History Chronic Pain: No - Surgical History Prior Surgeries: hysterectomy 1990. scar tissue excision-throat~2006 ANE Review of Systems Review of Systems: no URI/fever x2 weeks - Exercise capacity METS (RN): 4 METS - Systems Constitutional: Reports: no symptoms Cardiac: Reports: no symptoms Respiratory: Reports: no symptoms Gastrointestinal: Reports: rectal bleeding Muscolosketal: Reports: joint pain ANE Patient History - Allergies Allergies/Adverse Reactions: meperidine [From Demerol] Allergy (Verified 07/18/17 13:49) Hives - Home Medications Home medications: home medication list seen and reviewed Home Medications: Acetamn/Diphenhydramine 500/25 [Tylenol PM (*)] 1 each PO HS PRN 05/11/17 [Last Taken 07/12/17] Calcium Carbonate [Oyster Shell Calcium 500 mg (*)] 1,000 mg PO DAILY 05/11/17 [ Last Taken 07/19/17 08:00] Cholecalciferol Vit D3 [Vitamin D3 (*)] 2,000 units PO HS 05/11/17 [Last Taken 07/19/17 21:00] Eletriptan HBr [Relpax] 40 mg PO ONCE PRN 05/11/17 [Last Taken Unknown] Esomeprazole Magnesium 40 mg PO DAILY 05/11/17 [Last Taken 07/19/17 09:00] Golimumab [SIMPONI] 50 mg SQ Q30D 05/11/17 [Last Taken 07/13/17] Herbals/Supplements -Info Only 1 ea PO DAILY 05/11/17 [Last Taken 05/10/17] Lisinopril/Hydrochlorothiazide [Zestoretic 20-25 mg Tablet] 2 each PO DAILY [Last Taken 07/19/17 09:00] Multivitamins [Multivitamin (*)] 1 each PO DAILY 05/11/17 [Last Taken 07/16/17] [place]-3 Fatty Acids [Fish Oil 1000 mg (*)] 1,000 mg PO HS 05/11/17 [Last Taken 07/18/17] Verapamil HCl [Verapamil Sr] 240 mg PO BID 05/11/17 [Last Taken 07/19/17 21:00] metFORMIN HCL [Glucophage 500 mg (*)] 1,000 mg PO DAILY 05/11/17 [Last Taken 02/28 21:00] metFORMIN HCL [Glucophage 500 mg (*)] 500 mg PO DAILY@18 05/11/17 [Last Taken ] - NPO status NPO Status: no food or drink >8 hours - Anes Hx Anes Hx: no prior problems - Smoking Hx Smoking Status: Never smoked Marijuana use: No - Alcohol Use Alcohol Use: None ANE Labs/Vital Signs - Vital Signs Vital Signs: reviewed preoperatively; see RN documention for details Height: 165.1 cm Weight: 88.904 kg ANE Physical Exam - Airway Neck exam: FROM Mallampati Score: Class 2 Mouth exam: normal dental/mouth exam - Pulmonary Pulmonary: clear to auscultation - Cardiovascular Cardiovascular: regular rate and rhythym - ASA Status ASA Status: III ANE Anesthesia Plan Anesthesia Plan: GA with mask Total IV Anesthesia: Yes
[2017-07-20 07:30] VITALS: PULSE 67; RESP 16
[2017-07-20] MEDS ORDERED: LR 1,000 ML IV ONE (07:35)
[2017-07-20] MEDS ORDERED: LIDOCAINE 1% 2 ML INJ ID PRN (07:35)
[2017-07-20] MEDS ORDERED: fentaNYL 100 MCG/2 ML INJ ONE (08:06)
[2017-07-20] MEDS ORDERED: DEXAMETHASONE 4 MG/ML VIAL ONE (08:06)
[2017-07-20] MEDS ORDERED: LIDOCAINE 2% 5 ML SDV ONE (08:06)
[2017-07-20] MEDS ORDERED: PROPOFOL 200 MG/20 ML VIAL ONE ×2 (08:06)
--- NOTE | 2017-07-20 08:15 | PDGENHP ---
History & Physical Chief Complaint: gi bleed History of Present Illness: 67 year old female with cirrhosis presents for evaluatio of overt, occult GI bleed Pertinent Past, Social, Family History: PMHx: cirrhosis Relevant Physical Exam: HEENT: anicteric. CV: RRR +s1s2. Lungs: CTAB. Abd: soft, nt, + bs Cardiorespiratory Assessment: ASA 3. Mall 2
[2017-07-20] MEDS ORDERED: INDOMETHACIN 50 MG SUPP PR PRN (08:48)
[2017-07-20] MEDS ORDERED: NS 500 ML IV SCH (09:00)
[2017-07-20 09:31] VITALS: TEMP 97.7
--- NOTE | 2017-07-20 09:31 | GIREPORT ---
[facility] Surgical Services - Endoscopy Department Patient Name: Yessica Lane Procedure Date: 07/20/2017 8:14 AM Patient Type: Outpatient Attending MD/ ER Physician: Tesfaye Hawkins MD Procedure: Colonoscopy Indications: Hematochezia Patient Profile: 67 year old female presents for evaluaton of an overt,occult bleed. Providers: Tesfaye Hawkins MD Medicines: Monitored Anesthesia Care Complications: No immediate complications. Description of Procedure: After obtaining informed consent, the scope was passed under direct vision. Throughout the proce dure, the patient's blood pressure, pulse, and oxygen saturations were monitored continuously. The Colonoscope was introduced through the anus and advanced to the terminal ileum. The colonoscopy was performed without difficulty. The patient tolerated the procedure well. The quality of the bowel preparation was good. The terminal ileum, ileocecal valve, appendiceal orifice, and rectum were photographed. Findings: The perianal and digital rectal examinations were normal. Pertinent negatives include no palpabl e rectal lesions. The entire examined colon appeared normal. Estimated Blood Loss: Estimated blood loss: none. Post Op Diagnosis: - The entire examined colon is normal. - No specimens collected. Recommendation: - Discharge patient to home (with escort). - Resume previous diet. - Continue present medications. - Thank you for allowing me to particpate in the care of your patient. Attending Participation: I personally performed the entire procedure. Tesfaye Hawkins MD Tesfaye Hawkins MD 07/20/2017 9:30:29 AM Number of Addenda: 0 Note Initiated On: 07/20/2017 8:14 AM Total Procedure Duration Time 0 hours 20 minutes 23 seconds [email or web address]
[2017-07-20 12:49] VITALS: BP 120/66; O2SAT 91
== END 2017-07-20 10:45 | disposition home or self-care (01) ==
LOC: FSGY 06:25
PROVIDERS: ATTEND Internal Medicine Gastroenterology
PROC: 0DJD8ZZ Inspection of Lower Intestinal Tract, Via Natural or Artificial Opening Endoscopic (ICD-10-PCS; principal; 2017-07-20 08:15)
DX: K92.1 Melena (principal); K74.60 Unspecified cirrhosis of liver
CPT/HCPCS: J1100; J2704; J3010